=== PATIENT | female | born 1940 | race Caucasian/White ===

== ENCOUNTER 2017-09-18 10:30 | Inpatient (IN) | payer MEDICARE ==
[~2017-09-18] VITALS: Ht 160 cm; Wt 85.9 kg
[~2017-09-18 10:30] MED LIST: ATEN-169 PO; CEFP100T7 PO; DULO-31 PO; FLO0.4C PO; LACT1CAP26 PO; OMEP-84 PO; ROPI1TAB4 PO; TOF25T PO; TOP100T PO
[2017-09-18 10:59] LABS: BASOPHILS % (AUTO) 0.3 % (0-1); EOSINOPHILS # (AUTO) 0.1 X10'3 (0-0.9); EOSINOPHILS % (AUTO) 2.2 % (0-6); HEMATOCRIT 38.4 % (35.0-45.0); HEMOGLOBIN 13.2 g/dl (12.0-16.0); LYMPHOCYTES # (AUTO) 1.2 X10'3 (1.1-4.8); LYMPHOCYTES % (AUTO) 20.2 % (21-51); MEAN CORPUSCULAR HEMOGLOBIN 32.5 PG (27.0-31.0); MEAN CORPUSCULAR HGB CONC 34.3 % (33.0-36.5); MEAN CORPUSCULAR VOLUME 94.7 FL (78-98); MEAN PLATELET VOLUME 7.2 FL (7.4-10.4); MONOCYTES # (AUTO) 0.4 X10'3 (0-0.9); MONOCYTES % (AUTO) 6.5 % (2-12); NEUTROPHILS # (AUTO) 4.4 X10'3 (1.8-7.7); NEUTROPHILS % (AUTO) 70.8 % (42-75); PLATELET COUNT 256 X10'3 (140-440); RED BLOOD COUNT 4.05 X10'6 (4.20-5.60); RED CELL DISTRIBUTION WIDTH 13.2 % (11.5-14.5); WHITE BLOOD COUNT 6.2 X10'3 (4.5-11.0)
[2017-09-18 11:10] LABS: PARTIAL THROMBOPLASTIN TIME 28 SECONDS (22-32); PROTHROMBIN TIME 10.3 SECONDS (9.0-12.0)
[2017-09-18 11:13] LABS: CHLORIDE 105 MMOL/L (99-107); GLUCOSE 136 MG/DL (70-104); POTASSIUM 3.6 MMOL/L (3.5-5.1); SODIUM 140 MMOL/L (135-145); TOTAL CARBON DIOXIDE 24.1 MMOL/L (24-32)
[2017-09-18 11:14] LABS: ALANINE AMINOTRANSFERASE 26 U/L (12-78); ALBUMIN 3.7 G/DL (3.4-5.0); ALKALINE PHOSPHATASE 86 IU/L (46-116); ANION GAP 11 (8-16); ASPARTATE AMINO TRANSFERASE 14 U/L (10-37); BILIRUBIN,TOTAL 0.3 MG/DL (0.1-1.0); BLOOD UREA NITROGEN 24 MG/DL (7-18); CREATININE 0.89 MG/DL (0.40-0.90); TOTAL PROTEIN 7.3 G/DL (6.4-8.2); eGFR 62 ML/MIN
[2017-09-18] MEDS ORDERED: aspirin 81mg tab.chew PO ONE (12:20)
[2017-09-18] MEDS: nitroGLYCERIN 0.4mg SUBLingual tab SL PRN ×3 (12:29→13:11)
[2017-09-18] MEDS ORDERED: mag hydrox/Alum hydrox/simeth 30ml oral suspension PO PRN (14:20)
[2017-09-18] MEDS ORDERED: potassium Cl 20 mEq SR tablet PO PRN ×2 (14:20)
[2017-09-18] MEDS ORDERED: magnesium Cl slow-release 64mg tablet PO PRN (14:20)
[2017-09-18] MEDS ORDERED: acetaminophen 325mg tablet PO PRN (14:20)
[2017-09-18] MEDS ORDERED: magnesium 2GM in 50ml NS 50 ML IV PRN (14:20)
[2017-09-18] MEDS ORDERED: magnesium hydroxide 30ml (MOM) UD suspension PO PRN (14:20)
[2017-09-18] MEDS ORDERED: magnesium 4gm in 100ml NS 100 ML IV PRN (14:20)
[2017-09-18] MEDS ORDERED: potassium Cl 40MEQ/NS 500ml 500 ML IV PRN ×2 (14:20)
[2017-09-18] MEDS ORDERED: morphine 2 MG/ML inj. syringe IV PRN (14:20)
[2017-09-18] MEDS ORDERED: bisacodyl 10mg suppository rectal RC PRN (14:20)
[2017-09-18] MEDS ORDERED: ondansetron/PF 4mg/2ml inj IV PRN (14:20)
[2017-09-18] MEDS ORDERED: nitroGLYCERIN 0.4mg SUBLingual tab SL PRN ×2 (14:30→14:35)
[2017-09-18] MEDS ORDERED: regadenoson 0.4mg/5ml syringe IV ONE (14:35)
[2017-09-18] MEDS ORDERED: metoprolol tartrate 1mg/ml inj IV PRN (14:35)
[2017-09-18] MEDS ORDERED: aminophylline 250mg/10ml inj. IV PRN (14:35)
[2017-09-18] MEDS: morphine 2 MG/ML inj. syringe IV PRN ×2 (14:36→20:57)
[2017-09-18 14:55] LABS: CLARITY,URINE SLIGHTLY CLOUDY (Clear); COLOR,URINE YELLOW (Yellow); GLUCOSE, URINE NEGATIVE (Neg); KETONES,URINE NEGATIVE (Neg); LEUKOCYTE ESTERASE ,URINE NEGATIVE (Neg); NITRITES, URINE NEGATIVE (Neg); OCCULT BLOOD,URINE NEGATIVE (Neg); PH,URINE 7.5 (4.8-8.0); PROTEIN,URINE NEGATIVE (Neg); UROBILINOGEN,URINE 0.2 E.U/dL (0.2-1.0)
[2017-09-18 14:59] LABS: UA COLLECTION TYPE OTHER
[2017-09-18 15:04] LABS: MUCUS STRANDS FEW /LPF (Neg); SQUAMOUS EPITHELIAL CELL,UR FEW /LPF (FEW)
[2017-09-18 15:05] LABS: AMORPHOUS PHOSPHATES 1+; BACTERIA,URINE FEW /HPF (Neg)
[2017-09-18 15:06] LABS: RBC,URINE 0-2 /HPF (0-2); WBC,URINE 0-4 /HPF (0-4)
[2017-09-18] MEDS: nitroGLYCERIN 0.2mg/hour patch TD SCH (15:07)
[2017-09-18] MEDS: pantoprazole 40 MG vial IV SCH (15:07)
[2017-09-18 17:45] VITALS: BP 114/65
[2017-09-18 20:00] VITALS: BP 104/56
[2017-09-18] MEDS ORDERED: heparin, porcine 5000 units/ml vial SQ SCH (20:00)
[2017-09-18] MEDS: metoprolol tartrate 25mg tablet PO SCH (20:00)
[2017-09-18] MEDS ORDERED: topiramate 100mg tablet PO SCH (20:00)
[2017-09-18] MEDS: apixaban 5mg tablet PO SCH (20:56)
[2017-09-18] MEDS: docusate sod 100mg capsule PO SCH (20:56)
[2017-09-18] MEDS: oxybutynin 5mg tablet PO SCH (20:56)
[2017-09-18] MEDS ORDERED: tamsulosin 0.4mg capsule PO SCH (21:00)
[2017-09-18] MEDS ORDERED: ROPINIRole 1mg tablet PO SCH ×2 (21:00)
[2017-09-18] MEDS ORDERED: imipramine 25mg tablet PO SCH (21:00)
[2017-09-19] VITALS (12 sets, daily range): BP systolic 101–140; BP diastolic 52–73
[2017-09-19] MEDS: morphine 2 MG/ML inj. syringe IV PRN ×2 (02:12→07:33)
[2017-09-19 05:54] LABS: BASOPHILS % (AUTO) 0.5 % (0-1); EOSINOPHILS # (AUTO) 0.2 X10'3 (0-0.9); HEMATOCRIT 32.1 % (35.0-45.0); HEMOGLOBIN 11.3 g/dl (12.0-16.0); LYMPHOCYTES # (AUTO) 1.4 X10'3 (1.1-4.8); LYMPHOCYTES % (AUTO) 22.5 % (21-51); MEAN CORPUSCULAR HEMOGLOBIN 32.6 PG (27.0-31.0); MEAN CORPUSCULAR VOLUME 93.1 FL (78-98); MEAN PLATELET VOLUME 7.2 FL (7.4-10.4); MONOCYTES # (AUTO) 0.5 X10'3 (0-0.9); MONOCYTES % (AUTO) 8.3 % (2-12); NEUTROPHILS % (AUTO) 65.7 % (42-75); PLATELET COUNT 222 X10'3 (140-440); RED BLOOD COUNT 3.45 X10'6 (4.20-5.60); RED CELL DISTRIBUTION WIDTH 13.2 % (11.5-14.5); WHITE BLOOD COUNT 6.1 X10'3 (4.5-11.0)
[2017-09-19 06:08] LABS: ALANINE AMINOTRANSFERASE 16 U/L (12-78); ALBUMIN 3.1 G/DL (3.4-5.0); ALKALINE PHOSPHATASE 65 IU/L (46-116); ANION GAP 9 (8-16); ASPARTATE AMINO TRANSFERASE 16 U/L (10-37); BILIRUBIN,TOTAL 0.3 MG/DL (0.1-1.0); BLOOD UREA NITROGEN 20 MG/DL (7-18); BUN/CREATININE RATIO 24.4 (6.6-38.0); CALCIUM 8.9 MG/DL (8.5-10.1); CHLORIDE 108 MMOL/L (99-107); CHOL/HDL RATIO 3.4 (0.00-4.99); CHOLESTEROL 132 MG/DL (0-200); CREATININE 0.82 MG/DL (0.40-0.90); GLUCOSE 106 MG/DL (70-104); HDL CHOLESTEROL 39 MG/DL (35-60); LDL CHOLESTEROL 85 MG/DL (50-100); MAGNESIUM 1.8 MG/DL (1.5-2.4); POTASSIUM 3.5 MMOL/L (3.5-5.1); SODIUM 141 MMOL/L (135-145); TOTAL CARBON DIOXIDE 24.5 MMOL/L (24-32); TOTAL PROTEIN 6.2 G/DL (6.4-8.2); TRIGLYCERIDES 98 MG/DL (20-135); eGFR 68 ML/MIN
[2017-09-19] MEDS ORDERED: lactobacillus rhamnosus 10,000 MMU CELLS/CAPSULE PO SCH (07:30)
[2017-09-19] MEDS: duloxetine 30mg CAPSULE.DR PO SCH ×2 (07:35→08:00)
[2017-09-19] MEDS: oxybutynin 5mg tablet PO SCH (07:35)
[2017-09-19] MEDS: docusate sod 100mg capsule PO SCH (07:36)
[2017-09-19] MEDS: apixaban 5mg tablet PO SCH (07:37)
[2017-09-19] MEDS: metoprolol tartrate 25mg tablet PO SCH (07:37)
[2017-09-19] MEDS: pantoprazole 40 MG vial IV SCH (07:38)
[2017-09-19] MEDS: nitroGLYCERIN 0.2mg/hour patch TD SCH (07:39)
[2017-09-19] MEDS ORDERED: aspirin 81mg tablet.DR PO SCH (08:00)
[2017-09-19] MEDS ORDERED: K and/or MAG REPLACEMENT MC SCH (08:00)
[2017-09-19] MEDS ORDERED: OMEPRAZOLE 40 MG PO SCH (08:00)
[2017-09-19] MEDS ORDERED: atenolol 50mg tablet PO SCH (08:00)
[2017-09-19] MEDS ORDERED: topiramate 100mg tablet PO SCH (08:00)
[2017-09-19] MEDS ORDERED: aminophylline inj. 10 ML IV ONE (09:27)
[2017-09-19] MEDS ORDERED: regadenoson 0.4mg/5ml syringe IV ONE (09:27)
[2017-09-19] MEDS ORDERED: pneumococcal 23-VAL P-sac vacc 25 mcg/0.5ml vial IMVAC ONE (10:00)
[2017-09-19] MEDS ORDERED: APIX5TAB3 PO (14:31)
[2017-09-19] MEDS ORDERED: LIDOcaine 5% patch TP SCH (14:45)
[2017-09-19] MEDS ORDERED: LIDO700A47 TP (14:47)
[2017-09-19] MEDS ORDERED: apixaban 5mg tablet PO SCH (20:00)
[2017-09-20] MEDS ORDERED: pantoprazole 40mg Tablet.DR PO SCH (07:30)
== END 2017-09-19 15:30 | disposition home or self-care (01) | DRG 556 ==
LOC: ER 10:30 → ED HOLD 14:17 → EDBEDREQ 16:36 → MED 3N 17:51
PROVIDERS: ADMIT Internal Medicine; ATTEND Internal Medicine
PROC: 4A02XM4 Measurement of Cardiac Total Activity, External Approach (ICD-10-PCS; principal; 2017-09-19)
PROC: 3E033HZ Introduction of Radioactive Substance into Peripheral Vein, Percutaneous Approach (ICD-10-PCS; 2017-09-19)
DX: M79.7 Fibromyalgia (principal); I48.91 Unspecified atrial fibrillation; G40.909 Epilepsy, unspecified, not intractable, without status epilepticus; E03.9 Hypothyroidism, unspecified; I10 Essential (primary) hypertension; E78.00 Pure hypercholesterolemia, unspecified; E78.5 Hyperlipidemia, unspecified; M06.9 Rheumatoid arthritis, unspecified; Z82.3 Family history of stroke; K21.9 Gastro-esophageal reflux disease without esophagitis; R07.89 Other chest pain; Z85.3 Personal history of malignant neoplasm of breast; Z90.710 Acquired absence of both cervix and uterus; Z79.01 Long term (current) use of anticoagulants; Z95.0 Presence of cardiac pacemaker; Z90.49 Acquired absence of other specified parts of digestive tract; Z88.5 Allergy status to narcotic agent; Z79.899 Other long term (current) drug therapy; Z82.49 Family history of ischemic heart disease and other diseases of the circulatory system; Z84.89 Family history of other specified conditions
CPT/HCPCS: 36415; 71045; 78452; 80053; 80061; 81001; 83735; 84484; 85025; 85610; 85730; 87070; 90732; 93005; 93017; 93306; 99285; A9500; C9113; J0280; J2270

== ENCOUNTER 2017-11-21 17:26 | Emergency (ER) | payer MEDICARE ==
[~2017-11-21] VITALS: Ht 160 cm; Wt 84.1 kg
[~2017-11-21 17:26] MED LIST changes: +APIX5TAB3 PO; -CEFP100T7 PO; +LIDO700A47 TP
[2017-11-21 19:19] LABS: CLARITY,URINE SLIGHTLY CLOUDY (Clear); COLOR,URINE YELLOW (Yellow); GLUCOSE, URINE NEGATIVE (Neg); KETONES,URINE NEGATIVE (Neg); LEUKOCYTE ESTERASE ,URINE TRACE (Neg); NITRITES, URINE NEGATIVE (Neg); OCCULT BLOOD,URINE NEGATIVE (Neg); PROTEIN,URINE NEGATIVE (Neg); UROBILINOGEN,URINE 0.2 E.U/dL (0.2-1.0)
[2017-11-21 19:23] LABS: UA COLLECTION TYPE CLN CATCH MIDSTREAM
[2017-11-21 19:31] LABS: BACTERIA,URINE 4+ /HPF (Neg); MUCUS STRANDS FEW /LPF (Neg); SQUAMOUS EPITHELIAL CELL,UR FEW /LPF (FEW)
[2017-11-21 19:32] LABS: RBC,URINE 0-2 /HPF (0-2); WBC,URINE 0-4 /HPF (0-4)
[2017-11-21 19:40] LABS: BASOPHILS % (AUTO) 0.2 % (0-1); EOSINOPHILS # (AUTO) 0.1 X10'3 (0-0.9); EOSINOPHILS % (AUTO) 1.4 % (0-6); HEMATOCRIT 35.1 % (35.0-45.0); HEMOGLOBIN 12.1 g/dl (12.0-16.0); LYMPHOCYTES # (AUTO) 0.7 X10'3 (1.1-4.8); LYMPHOCYTES % (AUTO) 9.4 % (21-51); MEAN CORPUSCULAR HEMOGLOBIN 32.6 PG (27.0-31.0); MEAN CORPUSCULAR HGB CONC 34.4 % (33.0-36.5); MEAN CORPUSCULAR VOLUME 94.6 FL (78-98); MONOCYTES # (AUTO) 0.3 X10'3 (0-0.9); MONOCYTES % (AUTO) 3.8 % (2-12); NEUTROPHILS # (AUTO) 6.2 X10'3 (1.8-7.7); NEUTROPHILS % (AUTO) 85.2 % (42-75); PLATELET COUNT 241 X10'3 (140-440); RED BLOOD COUNT 3.71 X10'6 (4.20-5.60); RED CELL DISTRIBUTION WIDTH 13.5 % (11.5-14.5); WHITE BLOOD COUNT 7.3 X10'3 (4.5-11.0)
[2017-11-21 19:51] LABS: PARTIAL THROMBOPLASTIN TIME 24 SECONDS (22-32); PROTHROMBIN TIME 10.4 SECONDS (9.0-12.0)
[2017-11-21 19:54] LABS: ALANINE AMINOTRANSFERASE 21 U/L (12-78); ALBUMIN 3.2 G/DL (3.4-5.0); ALKALINE PHOSPHATASE 58 IU/L (46-116); ANION GAP 11 (8-16); ASPARTATE AMINO TRANSFERASE 16 U/L (10-37); BILIRUBIN,TOTAL 0.3 MG/DL (0.1-1.0); BLOOD UREA NITROGEN 31 MG/DL (7-18); BUN/CREATININE RATIO 39.2 (6.6-38.0); CALCIUM 8.1 MG/DL (8.5-10.1); CHLORIDE 107 MMOL/L (99-107); CREATININE 0.79 MG/DL (0.40-0.90); GLUCOSE 130 MG/DL (70-104); MAGNESIUM 1.9 MG/DL (1.5-2.4); POTASSIUM 3.9 MMOL/L (3.5-5.1); SODIUM 138 MMOL/L (135-145); TOTAL CARBON DIOXIDE 20.2 MMOL/L (24-32); TOTAL PROTEIN 6.5 G/DL (6.4-8.2); eGFR 71 ML/MIN
[2017-11-21 21:01] VITALS: BP 120/64
== END 2017-11-21 21:02 | disposition home or self-care (01) ==
LOC: ER 17:27
DX: R53.1 Weakness (principal); G89.29 Other chronic pain; M54.9 Dorsalgia, unspecified; I25.10 Atherosclerotic heart disease of native coronary artery without angina pectoris; M06.9 Rheumatoid arthritis, unspecified; F12.90 Cannabis use, unspecified, uncomplicated; Z90.710 Acquired absence of both cervix and uterus; Z90.49 Acquired absence of other specified parts of digestive tract; Z95.0 Presence of cardiac pacemaker; Z79.899 Other long term (current) drug therapy
CPT/HCPCS: 36415; 71045; 80053; 81001; 83605; 83735; 84145; 85025; 85610; 85730; 87040; 87088; 93005; 99285